=== PATIENT | male | born 1965 | race Hispanic/Latino ===

== ENCOUNTER 2022-02-21 17:32 | Emergency (ER) | payer OTHER ==
[~2022-02-21] VITALS: Ht 170.2 cm; Wt 79.4 kg
[2022-02-21] MEDS ORDERED: IBUPROFEN 600 MG TABLET PO ONE (18:00)
[2022-02-21] MEDS ORDERED: ONDANSETRON ODT 4MG TAB SL ONE (18:00)
[2022-02-21] MEDS ORDERED: ACETAMINOPHEN 500 MG TABLET PO ONE (18:00)
[2022-02-21] MEDS ORDERED: OSEL75 PO (18:43)
[2022-02-21] MEDS ORDERED: D-ME118S47 PO (18:43)
[2022-02-21] MEDS ORDERED: IBUP-2070 PO (18:43)
[2022-02-21] MEDS ORDERED: ONDA4TAB10 PO (18:43)
[2022-02-21] MEDS ORDERED: 0.9%NACL 1000ML 1,000 ML IV ONE (19:00)
[2022-02-21] MEDS ORDERED: OSELTAMIVIR PHOSPHATE 75 MG CAP PO SCH (19:00)
[2022-02-21 19:58] VITALS: BP 107/55
== END 2022-02-21 20:00 | disposition home or self-care (01) ==
LOC: EDH 17:32
DX: J10.1 Influenza due to other identified influenza virus with other respiratory manifestations (principal); Z20.822 Contact with and (suspected) exposure to COVID-19; I48.91 Unspecified atrial fibrillation; I10 Essential (primary) hypertension; Z88.0 Allergy status to penicillin
CPT/HCPCS: 99284; 87635; 87804 ×2; C9803

== ENCOUNTER 2022-09-12 16:40 | Emergency (ER) | payer OTHER ==
[~2022-09-12] VITALS: Ht 175.3 cm; Wt 81.6 kg
[~2022-09-12 16:40] MED LIST: D-ME118S47 PO; IBUP-2070 PO; ONDA4TAB10 PO; OSEL75 PO
[2022-09-12 17:12] LABS: BASOPHILS % (AUTO) 0.5 % (0.0-5.0); EOSINOPHILS % (AUTO) 0.6 % (0.0-8.0); HEMATOCRIT 42.7 % (42-54); LYMPHOCYTES % (AUTO) 16.3 % (21.0-51.0); MEAN CORPUSCULAR HEMOGLOBIN 28.6 pg (27.0-33.0); MEAN CORPUSCULAR HGB CONC 33.7 g/dL (32.0-36.0); MEAN CORPUSCULAR VOLUME 84.9 fL (79-99); NEUTROPHILS % (AUTO) 77.4 % (40.0-77.0); PLATELET COUNT (AUTO) 180 K/uL (130-400); RED BLOOD CELL COUNT(AUTO) 5.03 MIL/uL (4.50-6.20); RED CELL DISTRIBUTION WIDTH 12.3 % (11.0-15.5); WHITE BLOOD COUNT (AUTO) 6.6 K/uL (4.8-10.8)
[2022-09-12 17:22] LABS: POTASSIUM 3.4 mmol/L (3.5-5.1)
[2022-09-12 17:23] LABS: INR 0.95 (0.85-1.15); PROTHROMBIN TIME 10.4 SEC (9.6-11.6)
[2022-09-12 17:33] LABS: ALBUMIN 3.6 g/dL (3.5-5.0); TOTAL PROTEIN, SERUM 7.1 g/dL (6.0-8.3)
[2022-09-12 17:37] LABS: B-TYPE NATRIURETIC PEPTIDE 11 pg/mL (0-100)
[2022-09-12 18:10] VITALS: BP 102/63
[2022-09-12] MEDS ORDERED: LOSA25TA41 PO (18:34)
[2022-09-12] MEDS ORDERED: METO-408 PO (18:34)
[2022-09-12] MEDS ORDERED: KCL 20 MEQ ERTAB PO ONE (19:00)
== END 2022-09-12 18:55 | disposition home or self-care (01) ==
LOC: EDH 16:40
DX: E87.6 Hypokalemia (principal); R00.2 Palpitations; I48.91 Unspecified atrial fibrillation; I10 Essential (primary) hypertension; Z88.0 Allergy status to penicillin; Z79.899 Other long term (current) drug therapy
CPT/HCPCS: 36415; 71045; 80053; 83880; 84484; 85025; 85610; 93005

== ENCOUNTER 2024-03-03 13:38 | Emergency (ER) | payer OTHER ==
[~2024-03-03] VITALS: Ht 175.3 cm; Wt 80.7 kg
[~2024-03-03 13:38] MED LIST changes: +BROM118S48 PO; -D-ME118S47 PO; +LOSA25TA41 PO; +METO-408 PO; +ONDA-243 PO; -ONDA4TAB10 PO
[2024-03-03 14:42] LABS: RAPID GROUP A STREP negative (NEGATIVE)
[2024-03-03 14:54] LABS: INFLUENZA TYPE A Negative For Type A (NEGATIVE); INFLUENZA TYPE B Negative For Type B (NEGATIVE)
[2024-03-03 14:58] LABS: COVID19 (SARS ANTIGEN RAPID) PRESUMPTIVE NEGATIVE (NEGATIVE)
[2024-03-03 15:49] LABS: BASOPHILS # (AUTO) 0.02 K/uL (0.00-0.20); BASOPHILS % (AUTO) 0.2 % (0.0-5.0); EOSINOPHILS # (AUTO) 0.01 K/uL (0.00-0.70); EOSINOPHILS % (AUTO) 0.1 % (0.0-8.0); HEMATOCRIT 42.1 % (42-54); IMMATURE GRANULOCYTE ABSOLUTE 0.03 K/uL (0-1); LYMPHOCYTES # (AUTO) 0.3 K/uL (1.0-4.8); LYMPHOCYTES % (AUTO) 2.1 % (21.0-51.0); MEAN CORPUSCULAR HEMOGLOBIN 28.8 pg (27.0-33.0); MEAN CORPUSCULAR HGB CONC 34.4 g/dL (32.0-36.0); MEAN CORPUSCULAR VOLUME 83.7 fL (79-99); MONOCYTES # (AUTO) 0.4 K/uL (0.1-1.0); MONOCYTES % (AUTO) 3.4 % (3.0-13.0); NEUTROPHILS # (AUTO) 11.9 K/uL (1.8-7.7); PLATELET COUNT (AUTO) 154 K/uL (130-400); RED BLOOD CELL COUNT(AUTO) 5.03 MIL/uL (4.50-6.20); RED CELL DISTRIBUTION WIDTH 12.3 % (11.0-15.5); WHITE BLOOD COUNT (AUTO) 12.7 K/uL (4.8-10.8)
[2024-03-03 16:03] LABS: CREATININE 1.1 mg/dL (0.5-1.3); POTASSIUM 3.9 mmol/L (3.5-5.1)
[2024-03-03 16:07] LABS: ALBUMIN 3.8 g/dL (3.5-5.0); BILIRUBIN,TOTAL 0.8 mg/dL (0.2-1.0); TOTAL PROTEIN, SERUM 7.3 g/dL (6.0-8.3)
[2024-03-03] MEDS: 0.9%NACL 1000ML 1,000 ML IV ONE (17:14)
[2024-03-03 17:18] LABS: ADD UA MICROSCOPIC YES; APPEARANCE,URINE CLEAR (CLEAR); BILIRUBIN,URINE NEGATIVE (NEGATIVE); COLOR,URINE YELLOW (YELLOW); GLUCOSE, URINE (UA) NEGATIVE (NEGATIVE); KETONES,URINE NEGATIVE (NEGATIVE); LEUKOCYTE ESTERASE ,URINE NEGATIVE Leu/uL (NEGATIVE); NITRATE,URINE NEGATIVE (NEGATIVE); PROTEIN,URINE 10 mg/dL (NEGATIVE); UROBILINOGEN,URINE 0.2 mg/dL (0.2-1.0)
[2024-03-03 17:19] LABS: MUCUS,URINE RARE LPF (None Seen); RBC,URINE 0-1 /HPF (0-1); WBC,URINE 0-1 /HPF (0-1)
[2024-03-03] MEDS ORDERED: ONDA-243 PO (18:27)
[2024-03-03] MEDS ORDERED: DICY10 PO (18:27)
[2024-03-03] MEDS ORDERED: LOSA50TA64 PO (18:27)
[2024-03-03] MEDS ORDERED: METO-391 PO (18:27)
[2024-03-03 18:38] VITALS: BP 126/76; PULSE 90; RESP 18; O2SAT 99
== END 2024-03-03 18:43 | disposition home or self-care (01) ==
LOC: EDH 13:38
DX: A08.4 Viral intestinal infection, unspecified (principal); R19.7 Diarrhea, unspecified; I10 Essential (primary) hypertension; E86.0 Dehydration; I48.91 Unspecified atrial fibrillation; Z79.899 Other long term (current) drug therapy; Z88.0 Allergy status to penicillin; Z20.822 Contact with and (suspected) exposure to COVID-19
CPT/HCPCS: 99284; 96360; 87426; 84443; 84484; 80053; 85025; 87880; 87804 ×2; 81001; 36415; 93005 ×2; J7030

== ENCOUNTER 2024-06-18 22:50 | Emergency (ER) | payer BC ==
[~2024-06-18] VITALS: Ht 175.3 cm; Wt 79.4 kg
[~2024-06-18 22:50] MED LIST changes: +DICY10 PO; +LOSA50TA64 PO; +METO-391 PO
[2024-06-18 22:51] VITALS: BP 140/79; PULSE 72; RESP 18; TEMP 98
[2024-06-18 23:29] LABS: BASOPHILS # (AUTO) 0.03 K/uL (0.00-0.20); BASOPHILS % (AUTO) 0.5 % (0.0-5.0); EOSINOPHILS # (AUTO) 0.05 K/uL (0.00-0.70); EOSINOPHILS % (AUTO) 0.8 % (0.0-8.0); HEMATOCRIT 38.2 % (42-54); IMMATURE GRANULOCYTE ABSOLUTE 0.11 K/uL (0-1); LYMPHOCYTES # (AUTO) 1.2 K/uL (1.0-4.8); LYMPHOCYTES % (AUTO) 18.9 % (21.0-51.0); MEAN CORPUSCULAR HEMOGLOBIN 29.3 pg (27.0-33.0); MEAN CORPUSCULAR HGB CONC 33.8 g/dL (32.0-36.0); MEAN CORPUSCULAR VOLUME 86.6 fL (79-99); MONOCYTES # (AUTO) 0.5 K/uL (0.1-1.0); MONOCYTES % (AUTO) 7.8 % (3.0-13.0); NEUTROPHILS # (AUTO) 4.4 K/uL (1.8-7.7); NEUTROPHILS % (AUTO) 70.2 % (40.0-77.0); PLATELET COUNT (AUTO) 198 K/uL (130-400); RED BLOOD CELL COUNT(AUTO) 4.41 MIL/uL (4.50-6.20); RED CELL DISTRIBUTION WIDTH 12.8 % (11.0-15.5); WHITE BLOOD COUNT (AUTO) 6.3 K/uL (4.8-10.8)
--- NOTE | 2024-06-18 23:32 | ERN ---
ED Note History of Present Illness Stated Complaint: PALPITATIONS, RT ARM SWELLING Chief Complaint: Palpitations Time Seen by MD: 23:22 Dictation: HPI: 59-year-old male with past medical history of atrial fibrillation not on anticoagulants, hypertension, anxiety presented to ED with complaints of on and off palpitations for past 1-2 weeks and right hand pressure feeling for past few days.. As per the patient he was admitted to other hospital for atrial fibrillation 1 month back and he is currently having a heart monitor. His director of scientific research is Dr. Sanjiv magaña. As per the patient he wakes up every 2 hours and this lead and feels racing heart rate her daughter noticed that he goes into apnea during sleep.. Pending sleep studies. He denies chest pain, nausea, vomiting, any focal neurological deficit, fever, abdominal pain. Allergies: Coded Allergies: Penicillins (Unverified Allergy, Unknown, 02/21/22) Home Meds Active Scripts Dicyclomine HCl (Bentyl) 10 Mg Cap, 10 MG PO q8 hours PRN for abdominal pain/cramping, #15 CAP 0 Refills Prov:ANGELICAJOHANNA M [employer] 03/03/24 Ondansetron (Ondansetron Odt) 4 Mg Tab.rapdis, 4 MG PO Q6HPRN PRN for nausea, #15 TAB 0 Refills Prov:JOHANNA DOMINGUEZ [place] [employer] 03/03/24 Losartan Potassium (Losartan Potassium) 50 Mg Tablet, 50 MG PO DAILY, #30 TAB 0 Refills Prov:JOHANNA DOMINGUEZ [place] [employer] 03/03/24 Metoprolol Succinate (Metoprolol Succinate) 50 Mg Tab.er.24h, 50 MG PO DAILY, #30 TAB 0 Refills Prov:JOHANNA DOMINGUEZ [employer] 03/03/24 Losartan Potassium (Losartan Potassium) 25 Mg Tablet, 25 MG PO DAILY for 90 Days, #90 TAB Prov:DANIELLA ANAND MD 09/12/22 Metoprolol Succinate (Metoprolol Succinate) 25 Mg Tab.er.24h, 25 MG PO DAILY for 90 Days, #90 TAB Prov:DANIELLA ANAND MD 09/12/22 Ondansetron (Ondansetron Odt) 4 Mg Tab.rapdis, 4 MG PO TID for NAUSEA, #10 TAB Prov:DANIELLA ANAND MD 02/21/22 D-Methorphan Hb/P-Epd HCl/Bpm (Bromfed Dm Cough Syrup) 118 Ml Syrup, 10 ML PO QID for COUGH, #120 ML Prov:DANIELLA ANAND MD 02/21/22 Oseltamivir Phosphate (Tamiflu) 75 Mg Cap, 75 MG PO BID, #5 DAYS Prov:DANIELLA ANAND MD 02/21/22 Ibuprofen (Ibuprofen) 600 Mg Tablet, 600 MG PO Q6H PRN for PAIN, #30 TAB Prov:DANIELLA ANAND MD 02/21/22 Past Medical History Past Medical History: A-Fib, Hypertension Surgical History: Other Surgical History Other: RT HAND Social History: Negative, Lives with family RN Note Reviewed/Agreed w/PFSH: Yes Review of System Dictation REVIEW OF SYSTEMS Positive for right per limb pressure feeling, intermittent palpitations CONSTITUTIONAL: Denies fevers, chills, or night sweats. No unintentional weight loss reported. ENT: No hearing loss, otalgia, otorrhea, rhinitis, rhinorrhea, hoarseness, or sore throat. CARDIOVASCULAR: Denies any exertional angina, dyspnea on exertion, orthopnea, paroxysmal nocturnal dyspnea, palpitations claudication. PULMONARY: Denies any shortness of breath, cough, phlegm / sputum, hemoptysis, pleuritic chest pain. SLEEP: Denies morning headaches, daytime somnolence or napping. Denies difficulty falling asleep, staying asleep, waking from sleep. Denies knowledge of snoring. GASTROINTESTINAL: Denies any type of dysphagia to either liquids or solids. Denies nausea, vomiting, abdominal pain, diarrhea, constipation, blood in stools . NEUROLOGICAL: Denies headache, motor weakness, sensory deficit, vertigo / spinning sensation, gait abnormalities, or tremors. GENITOURINARY: Denies frequency, urgency, nocturia, hematuria or incontinence, low urinary stream, straining to void, urinary intermittency or hesitancy ENDOCRINOLOGY: Denies polyuria, polydipsia, polyphagia or heat / cold intolerance. HEMATOLOGY: Denies thrombophilia / previous clots, or coagulopathy / bleeding disorders. ONCOLOGIC: Denies personal history of malignancy. DERMATOLOGIC: Denies rashes or pruritus. PSYCHIATRIC: Denies any suicidal or homicidal ideation. Denies hallucinations. Initial Vital Sign VS Vital Signs Date Time Temp Pulse Resp B/P (MAP) Pulse Ox O2 Delivery O2 Flow Rate FiO2 06/18/24 22:51 98.1 72 18 140/79 98 Room Air Physical Exam Dictation PHYSICAL EXAM GENERAL APPEARANCE: Well nourished . Awake and alert. Oriented to time, place and person. No acute cardiopulmonary distress. HEENT: Head normocephalic , atraumatic. Sclera anicteric . Pupils are round and reactive. Extraocular movements intact . No conjunctival injection. No nasal congestion. No throat congestion .Oral mucosa moist. NECK: Supple. No JVD. No thyromegaly. No submental, submandibular, pre- /postauricular, occipital or supraclavicular lymphadenopathy. No carotid bruits. CHEST: Normal chest expansion. No Telemetry. LUNGS: Clear to auscultation bilaterally . No rales, rhonchi or any wheezing. Equal tactile fremitus. Resonant to percussion . CARDIOVASCULAR: Regular rate and rhythm. S1 and S2 normal. ? diastolic murmur loud on left sternal border ABDOMEN: Soft, nontender, and nondistended. There is no rebound tenderness, voluntary guarding, or rigidity. No hepatosplenomegaly. Bowel sounds normal in all four quadrants . NEUROLOGICAL: Cranial nerves II-XII grossly intact. Motor is 5/5 in bilateral upper and lower extremities . No sensory deficits. EXTREMITIES: No edema, No cyanosis , No clubbing. Good capillary refill. SKIN: No skin breakdown. No rashes or lesions . PSYCHIATRY: Normal affect .No auditory or visual hallucinations. Normal speech. No dysarthria. Results (Laboratory/Radiology) Laboratory/Radiology Laboratory Tests Test 06/18/24 23:21 White Blood Count 6.3 K/uL (4.8-10.8) Red Blood Count 4.41 MIL/uL (4.50-6.20) L Hemoglobin 12.9 g/dL (14.0-18.0) L Hematocrit 38.2 % (42-54) L Mean Corpuscular Volume 86.6 fL (79-99) Mean Corpuscular Hemoglobin 29.3 pg (27.0-33.0) Mean Corpuscular Hemoglobin Concent 33.8 g/dL (32.0-36.0) Red Cell Distribution Width 12.8 % (11.0-15.5) Platelet Count 198 K/uL (130-400) Mean Platelet Volume 9.8 fL (7.5-10.5) Immature Granulocyte % (Auto) 1.8 % (0-1) H Neutrophils (%) (Auto) 70.2 % (40.0-77.0) Lymphocytes (%) (Auto) 18.9 % (21.0-51.0) L Monocytes (%) (Auto) 7.8 % (3.0-13.0) Eosinophils (%) (Auto) 0.8 % (0.0-8.0) Basophils (%) (Auto) 0.5 % (0.0-5.0) Neutrophils # (Auto) 4.4 K/uL (1.8-7.7) Lymphocytes # (Auto) 1.2 K/uL (1.0-4.8) Monocytes # (Auto) 0.5 K/uL (0.1-1.0) Eosinophils # (Auto) 0.05 K/uL (0.00-0.70) Basophils # (Auto) 0.03 K/uL (0.00-0.20) Absolute Immature Granulocyte (auto 0.11 K/uL (0-1) Nucleated Red Blood Cells 0.0 % (0.0-0.19) Sodium Level 136 mmol/L (136-145) Potassium Level 3.5 mmol/L (3.5-5.1) Chloride Level 100 mmol/L (101-111) L Carbon Dioxide Level 32 mmol/L (21-32) Blood Urea Nitrogen 15 mg/dL (7-18) Creatinine 0.8 mg/dL (0.5-1.3) Glomerular Filtration Rate Calc 103 mL/min (>90) Random Glucose 137 mg/dL (70-105) H Total Calcium 8.6 mg/dL (8.5-10.1) Total Creatine Kinase 88 U/L (21-232) Troponin I High Sensitivity 8.0 ng/L (4-75) Labs Reviewed?: Yes ED Course ED Course Orders Procedure Category Date Status Time 12 Lead Ekg Tracing- EKG 06/18/24 Logged Technical 22:52 Cardiac Panel LAB 06/18/24 Complete 23:07 Cbc With Differential LAB 06/18/24 Complete 23:07 Basic Metabolic Panel LAB 06/18/24 Complete 23:07 Vital Signs Date Time Temp Pulse Resp B/P (MAP) Pulse Ox O2 Delivery O2 Flow Rate FiO2 06/18/24 22:51 98.1 72 18 140/79 98 Room Air Had a long discussion with patient and he already has a cardiac monitoring per his director of scientific research. He was started on flecainide, and also on diltiazem and amlodipine. He was scheduled for home sleep study to evaluate for possible obstructive sleep apnea as potential trigger for his palpitations. I could not appreciate any right upper extremity swelling that he was complaining about and there was no tenderness, erythema or palpable cords. Patient felt reassured and wished to follow up with his director of scientific research and pursue the sleep study arely It appeared that patient had a little bit of an anxiety episode. He was recentl y started on Lexapro Medical Decision Making MDM Differential diagnosis : Anxiety, arrhythmia Rationale: Tests considered and ordered secondary to shared decision making include: I will re-evaluate the patient after treatment and diagnostic exams have returned to determine whether they require further testing, can be safely discharged home, or need admission for further treatment and evaluation. Given the social determinants of health affecting care, including literacy, access to medical care, prescription drug management, and [id number] drugs, I will ensure that treatment plans are tailored accordingly. There are no social concerns with this patient. Risk of complication and/or morbidity or mortality of patient management: None Need for hospitalization: Patient does not meet criteria for hospitalization. Need for emergency major/minor surgery: No Prescription drug management Prescriptions will include symptomatic care Medications-Per medication reconciliation Previous outside records reviewed: Old ER visits. Patient's prior external medical records from other ER visits were reviewed by me as indicated. Prior testing and results from previous visits were reviewed. Prior tests were taken into account with medical decision making and resource utilization, independent historian/historians were used to obtain complete medical history. I independently interpreted the test that were performed, results were reviewed by me and considered findings on radiology. Medical management and examination interpretation discussions was done by me with other qualified healthcare professionals as indicated for the patient's care. Revaluation Disposition : Problem List Problem List: (1) Palpitations (2) History of atrial fibrillation (3) Hypertension DX & DISP Disposition: Discharge Departure Impression: Primary Impression: Palpitations Additional Impressions: History of atrial fibrillation, Hypertension Condition: Stable Additional Instructions: Patient and the caregiver have been informed of all the diagnostic tests and the imaging conducted during the today's visit to the emergency room and has verbalized understanding of the results I have personally reviewed and interpreted all diagnostic exams performed here in the ER today as well as the vital signs documented by the nursing staff. The patient is now being discharged to home and should follow up with the primary care physician or the specialist as directed by the ER staff. Follow-up with primary care provider in 1 to 2 days. Take medications as directed here in the emergency room. Okay to continue home medications unless otherwise discussed during your visit in the emergency room today. Return to your nearest emergency room if symptoms worsen or if there is no improvement. Call 911 if you need immediate assistance. Take Tylenol or Motrin [id number] as needed and if no contraindications are present. Increase oral hydration. A wound culture or urine culture was ordered here in the emergency room department please follow-up with primary care provider and advise them to get repeat ports from our facility. If you had any Romel wrap/splints that were applied here, please do not remove them until you see your primary care or specialty. Patient has a follow-up appointment this coming week with his director of scientific research for evaluation of the monitoring tech and ongoing palpitations and response to flecainide He is in normal sinus rhythm with rate controlled at this time and is wanting to follow up with his director of scientific research who does not come to this hospital Referrals: SELF,REFERRAL (PCP) ATTESTATION BY PHYSICIAN I have seen and examined the patient. I reviewed the documentation, medical decision making, and treatment plan as noted by the resident provider above. I agree with the findings and plan of care. ALAN SUTTON MD, ANCHU A MD Jun 18, 2024 23:32 ALAN SUTTON MD Jun 19, 2024 01:26
[2024-06-18 23:35] LABS: CREATININE 0.8 mg/dL (0.5-1.3); POTASSIUM 3.5 mmol/L (3.5-5.1)
--- NOTE | 2024-06-19 15:09 | EKG ---
[facility] Test Date: 2024-06-18 Test Time: 22:52:29 Pat Name: BRAYDEN SÁNCHEZ Department: ED Room: Gender: M Manager Specialty: [id number] : 1965 Requested By: ALAN SUTTON Order Number: [id number] Reading MD: Yury Oleary Measurements Intervals [place] Rate: 76 P: 78 [place]: 177 QRS: 65 QRSD: 95 T: 86 QT: 402 QTc: 453 Interpretive Statements Sinus rhythm Compared to ECG 03/03/2024 16:40:42 No significant changes Electronically Signed On 06-19-2024 17:36:43 [employer] by Yury Oleary Please click the below link to view image of tracing.
== END 2024-06-19 01:45 | disposition home or self-care (01) ==
LOC: EDH 22:50
DX: R00.2 Palpitations (principal); I48.91 Unspecified atrial fibrillation; I10 Essential (primary) hypertension; Z79.899 Other long term (current) drug therapy; Z88.0 Allergy status to penicillin; Z98.890 Other specified postprocedural states
CPT/HCPCS: 36415; 80048; 82550; 84484; 85025; 93005

== ENCOUNTER 2025-06-02 08:17 | Emergency (ER) | payer BC ==
[~2025-06-02] VITALS: Ht 175.3 cm; Wt 79.4 kg
[~2025-06-02 08:17] MED LIST changes: +IBUP-1492 PO; -IBUP-2070 PO
--- NOTE | 2025-06-02 08:34 | ERN ---
General Chief Complaint: Palpitations Stated Complaint: PALPITATIONS Time Seen by MD: 08:20 Source: patient History of Present Illness Initial Comments Patient is a 60-year-old male coming in complaining of palpitations. Per patient he does has a history of AFib. Per patient he was recently with a reduced on his metoprolol from 50 to 25 but he states he also has a history of sleep apnea. Patient is also stating that he has not used his CPAP for some time and believes he might be contributing to his palpitation. Allergies: Coded Allergies: Penicillins (Unverified Allergy, Unknown, 02/21/22) Home Meds Active Scripts Dicyclomine HCl (Bentyl) 10 Mg Cap, 10 MG PO q8 hours PRN for abdominal pain/cramping, #15 CAP 0 Refills Prov:JOHANNA DOMINGUEZ [facility] 03/03/24 Ondansetron (Ondansetron Odt) 4 Mg Tab.rapdis, 4 MG PO Q6HPRN PRN for nausea, #15 TAB 0 Refills Prov:JOHANNA DOMINGUEZ [facility] 03/03/24 Losartan Potassium (Losartan Potassium) 50 Mg Tablet, 50 MG PO DAILY, #30 TAB 0 Refills Prov:JOHANNA DOMINGUEZ [facility] 03/03/24 Metoprolol Succinate (Metoprolol Succinate) 50 Mg Tab.er.24h, 50 MG PO DAILY, #30 TAB 0 Refills Prov:JOHANNA DOMINGUEZ [facility] 03/03/24 Losartan Potassium (Losartan Potassium) 25 Mg Tablet, 25 MG PO DAILY for 90 Days, #90 TAB Prov:DANIELLA ANAND MD 09/12/22 Metoprolol Succinate (Metoprolol Succinate) 25 Mg Tab.er.24h, 25 MG PO DAILY for 90 Days, #90 TAB Prov:DANIELLA ANAND MD 09/12/22 Ondansetron (Ondansetron Odt) 4 Mg Tab.rapdis, 4 MG PO TID for NAUSEA, #10 TAB Prov:DANIELLA ANAND MD 02/21/22 D-Methorphan Hb/P-Epd HCl/Bpm (Bromfed Dm Cough Syrup) 118 Ml Syrup, 10 ML PO QID for COUGH, #120 ML Prov:DANIELLA ANAND MD 02/21/22 Oseltamivir Phosphate (Tamiflu) 75 Mg Cap, 75 MG PO BID, #5 DAYS Prov:DANIELLA ANAND MD 02/21/22 Ibuprofen (Ibuprofen) 600 Mg Tablet, 600 MG PO Q6H PRN for PAIN, #30 TAB Prov:DANIELLA ANAND MD 02/21/22 Past Medical History Past Medical History: A-Fib, Hypertension, Other Medical History Other: APNEA Past Surgical History: None Surgical History Other: RT HAND Social History Social History: Negative, Lives with family ROS Dictation CONSTITUTIONAL: No chills, no fever, no weakness, no diaphoresis, no malaise. HEAD/FACE: No signs of trauma. EENT: No eye pain, no blurred vision, no tearing, no double vision, no ear pain, no ear discharge, no nose pain, no nasal congestion, no throat pain, no throat swelling, no mouth pain. RESPIRATORY: No cough, no orthopnea, no SOB, no stridor, no wheezing. CARDIOVASCULAR: No chest pain, no edema, no palpitations, no syncope. GASTROINTESTINAL/ABDOMINAL: No abdominal pain, no constipation, no diarrhea, no nausea, no vomiting. GENITOURINARY: No abnormal discharge, no dysuria, no frequent urination, no hematuria. No complaints of pain in the genitals. MUSCULOSKELETAL: No back pain, no gout, no joint pain, no joint swelling, no muscle pain, no muscle stiffness, no neck pain. INTEGUMENTARY: No change in color, no change in hair/nails, no dryness, no lesion, no lumps, no rash. NEUROLOGICAL/PSYCH: No anxiety, not depressed, no emotional problem, no headache, no numbness, no pre-existing deficit, no history of seizures, no tremors, no weakness. HEMATOLOGIC/LYMPHATIC: Not anemic, no history of blood clots, no apparent bleeding, no bruising, glands not swollen. All Systems Negative, Except as Noted. Physical Exam Physical Exam Dictation VITAL SIGNS: Reviewed. GENERAL APPEARANCE: Alert, oriented x3, no acute distress, obese. HEAD AND FACE: Non-traumatic. EYES: PERRL, pink conjunctivas, eyelid no trauma, anterior chamber clear. EARS: Pinnas intact and no signs of trauma or erythema. Ear canals clear and no discharge. TMs no erythema. NOSE: No discharge, no bleeding. OROPHARYNX: Mouth normal, teeth no caries, tongue pink. Pharynx clear, no erythema. Tonsils no exudates, no abscesses noted. Mucous membrane moist. NECK: Supple, non-tender, no thyromegaly, no masses, no JVD, no bruits. BREAST: Deferred. CHEST: No tenderness, no crepitus, no paradoxical movement, no retractions. LUNGS: Clear, well-ventilated, symmetric, no rales, no wheezing, no rhonchi, no stridor, good breath sounds bilaterally. HEART: Regular rate, regular rhythm, no murmur, no gallops. VASCULAR: No peripheral edema. ABDOMEN: Soft, positive bowel sounds, nondistended, no guarding, nontender, no rebound, no masses no hepatomegaly, no splenomegaly, no Puentes's sign, no hernias. RECTAL: Deferred. GENITAL: Deferred. NEUROLOGICAL: Normal speech, gross motor function intact, gross sensory function intact. MUSCULOSKELETAL: Neck nontender, full range of motion, back nontender, full range of motion. EXTREMITIES: Nontender, full range of motion. SKIN: Color pink, dry, no turgor, no rash, no lacerations, no abrasions, no contusions. LYMPHATICS: Deferred. Results Laboratory and Microbiology Lab and Micro Result Laboratory Tests Test 06/02/25 08:30 06/02/25 10:17 White Blood Count 6.1 K/uL (4.8-10.8) Red Blood Count 4.91 MIL/uL (4.50-6.20) Hemoglobin 14.3 g/dL (14.0-18.0) Hematocrit 42.5 % (42-54) Mean Corpuscular Volume 86.6 fL (79-99) Mean Corpuscular Hemoglobin 29.1 pg (27.0-33.0) Mean Corpuscular Hemoglobin Concent 33.6 g/dL (32.0-36.0) Red Cell Distribution Width 12.7 % (11.0-15.5) Platelet Count 194 K/uL (130-400) Mean Platelet Volume 10.0 fL (7.5-10.5) Immature Granulocyte % (Auto) 0.3 % (0-1) Neutrophils (%) (Auto) 70.4 % (40.0-77.0) Lymphocytes (%) (Auto) 20.5 % (21.0-51.0) L Monocytes (%) (Auto) 7.4 % (3.0-13.0) Eosinophils (%) (Auto) 1.1 % (0.0-8.0) Basophils (%) (Auto) 0.3 % (0.0-5.0) Neutrophils # (Auto) 4.3 K/uL (1.8-7.7) Lymphocytes # (Auto) 1.3 K/uL (1.0-4.8) Monocytes # (Auto) 0.5 K/uL (0.1-1.0) Eosinophils # (Auto) 0.07 K/uL (0.00-0.70) Basophils # (Auto) 0.02 K/uL (0.00-0.20) Absolute Immature Granulocyte (auto 0.02 K/uL (0-1) Nucleated Red Blood Cells 0.0 % (0.0-0.19) Sodium Level 141 mmol/L (136-145) Potassium Level 3.9 mmol/L (3.5-5.1) Chloride Level 104 mmol/L (101-111) Carbon Dioxide Level 28 mmol/L (21-32) Blood Urea Nitrogen 14 mg/dL (7-18) Creatinine 0.8 mg/dL (0.5-1.3) Glomerular Filtration Rate Calc 102 mL/min (>90) Random Glucose 116 mg/dL (70-105) H Total Calcium 8.3 mg/dL (8.5-10.1) L Magnesium Level 2.00 mg/dL (1.80-2.40) Total Creatine Kinase 110 U/L (21-232) # Troponin I High Sensitivity 6 ng/L (4-75) Urine Color COLORLESS (YELLOW) Urine Appearance CLEAR (CLEAR) Urine pH 6.0 (5.0-8.0) Urine Specific [place] 1.007 (1.001-1.031) Urine Protein NEGATIVE mg/dL (NEGATIVE) Urine Glucose (UA) NEGATIVE mg/dL (NEGATIVE) Urine Ketones NEGATIVE mg/dL (NEGATIVE) Urine Occult Blood NEGATIVE (NEGATIVE) Urine Nitrate NEGATIVE (NEGATIVE) Urine Bilirubin NEGATIVE mg/dL (NEGATIVE) Urine Urobilinogen 0.2 mg/dL (0.2-1.0) Urine Leukocyte Esterase NEGATIVE [place]/uL Urine Opiates Screen NEGATIVE (NEGATIVE) Urine Barbiturates Screen NEGATIVE (NEGATIVE) Urine Phencyclidine Screen NEGATIVE (NEGATIVE) Urine Amphetamines Screen NEGATIVE (NEGATIVE) Urine Benzodiazepines Screen NEGATIVE (NEGATIVE) Urine Cocaine Screen NEGATIVE (NEGATIVE) Urine Marijuana (THC) Screen NEGATIVE (NEGATIVE) Labs Reviewed?: Yes EKG/XRAY/US/CT/MRI EKG Comment 06/02/2025 time 8:22 a.m. Ventricular rate [address] wave elevation or depression MDM MDM: Differential diagnosis: History of AFib, history of sleep apnea, Rationale: Tests considered and ordered secondary to shared decision making include: Previous outside records reviewed: Old ER visits. Risk of complication and/or morbidity or mortality of patient management: None Medications-Per medication reconciliation Need for hospitalization: Patient does not meet criteria for hospitalization. Need for emergency major/minor surgery: No Patient is a 60-year-old gentleman coming in complaining of palpitations. Patient does has a history of atrial fibrillation and states that he has noticed that when he does not use a CPAP machine that he is heart rate tends to be elevated. Cardiac workup negative for any acute findings. I did advise him to continue using his CPAP is recommended. Patient refused a chest x-ray. Patient will be discharged in stable condition with a diagnosis of atrial fibrillation. I did advised him appropriate follow up with the PCP for long-term management. Patient has been asymptomatic throughout ER visit. ED Course Orders Procedure Category Date Status Time Cbc With Differential LAB 06/02/25 Complete 08:23 Chest 1vw RAD 06/02/25 Logged 08:23 12 Lead Ekg Tracing- EKG 06/02/25 Complete Technical 08:23 Magnesium LAB 06/02/25 Complete 08:23 Creatine Kinase, Total LAB 06/02/25 Complete 08:23 Troponin I High LAB 06/02/25 Complete Sensitivity 08:23 Urinalysis Profile LAB 06/02/25 Complete 08:23 Basic Metabolic Panel LAB 06/02/25 Complete 08:23 Drug Screen Urine LAB 06/02/25 Complete 10:17 Vital Signs Date Time Temp Pulse Resp B/P (MAP) Pulse Ox O2 Delivery O2 Flow Rate FiO2 06/02/25 11:07 73 20 152/77 98 Room Air* 0 21 06/02/25 08:49 98.2 73 20 152/77 96 Room Air* 0 21 06/02/25 08:18 97.0 90 18 139/87 99 Room Air 0 DX & DISP Disposition: Discharge Departure Impression: Primary Impression: History of atrial fibrillation Additional Impression: History of sleep apnea Condition: Stable Additional Instructions: You have been reviewed in the emergency department at [facility] after presenting with chest pain. After considering your history, your risk factors, your EKG and your blood test troponins, have been found to be at very low risk less than (1 in 100) of having a major adverse cardiac event (like heart attack) in the near future. In the " low risk" group, the risks of doing further tests and treatment as the inpatient outweighs the benefits. In many patients in the low risk group for the test of any sort or unnecessary, however he should discuss this further with his general practitioner who will understand the medical and personal backgrounds better. Because we have never declared you" no risk" we would suggest. 1 returning for medical review if you have further episodes of chest pain/arm pain or other concerning symptoms like dizziness, collapse, palpitations or shortness of breath. 2. Following up with your local doctor who will consider the need for further testing and will also ensure that any modifiable risk factors you may have for heart disease are optimally managed. Patient will be discharged in stable condition at the moment discharge patient states , no chest pain Referrals: BEL YOU MD (PCP) Time of Disposition: 11:26 SABA PERALTA MD Jun 02, 2025 08:34
[2025-06-02 08:38] LABS: IMMATURE GRANULOCYTE ABSOLUTE 0.02 K/uL (0-1); NUCLEATED RED BLOOD CELLS 0.0 % (0.0-0.19); PLATELET COUNT (AUTO) 194 K/uL (130-400); RED BLOOD CELL COUNT(AUTO) 4.91 MIL/uL (4.50-6.20); RED CELL DISTRIBUTION WIDTH 12.7 % (11.0-15.5); WHITE BLOOD COUNT (AUTO) 6.1 K/uL (4.8-10.8)
[2025-06-02 08:46] LABS: CREATININE 0.8 mg/dL (0.5-1.3); GLOMERULAR FILTR. RATE CALC 102.0 mL/min (>90); GLUCOSE,RANDOM 116.0 mg/dL (70-105); SODIUM SERUM 141.0 mmol/L (136-145); UREA NITROGEN, BLOOD 14.0 mg/dL (7-18)
[2025-06-02 08:49] VITALS: TEMP 98.2
[2025-06-02 08:51] LABS: CREATINE KINASE, TOTAL 110.0 U/L (21-232)
--- NOTE | 2025-06-02 09:23 | NUR ---
PT REFUSED CHEST XRAY. AWARE
[2025-06-02 10:37] LABS: AMPHET/METH SCREEN,URINE NEGATIVE (NEGATIVE); BARBITURATE SCREEN, URINE NEGATIVE (NEGATIVE); CANNABINOID SCREEN,URINE NEGATIVE (NEGATIVE); COCAINE SCREEN,URINE NEGATIVE (NEGATIVE)
--- NOTE | 2025-06-02 10:37 | EKG ---
[facility] Test Date: 2025-06-02 Test Time: 08:22:43 Pat Name: BRAYDEN SÁNCHEZ Department: [facility] Room: Gender: It Security Analyst: [facility] : 1965 Requested By: SABA PERALTA Order Number: [id number] Reading MD: Robert Cee Measurements Intervals [place] Rate: 91 P: 0 [place]: 0 QRS: 50 QRSD: 81 T: 55 QT: 356 QTc: 439 Interpretive Statements Atrial fibrillation Compared to ECG 06/18/2024 22:52:29 Sinus rhythm no longer present Electronically Signed On 06-02-2025 16:13:08 CDT by Robert Cee Please click the below link to view image of tracing.
[2025-06-02 10:45] LABS: APPEARANCE,URINE CLEAR (CLEAR); GLUCOSE, URINE (UA) NEGATIVE (NEGATIVE); LEUKOCYTE ESTERASE ,URINE NEGATIVE Leu/uL (NEGATIVE); NITRATE,URINE NEGATIVE (NEGATIVE); OCCULT BLOOD,URINE NEGATIVE (NEGATIVE)
[2025-06-02 10:47] LABS: ADD UA MICROSCOPIC NO
[2025-06-02 11:07] VITALS: BP 152/77; PULSE 73; RESP 20; O2SAT 98
== END 2025-06-02 15:57 | disposition home or self-care (01) ==
LOC: EDH 08:17
DX: I48.91 Unspecified atrial fibrillation (principal); G47.30 Sleep apnea, unspecified; I10 Essential (primary) hypertension; Z79.899 Other long term (current) drug therapy; Z88.0 Allergy status to penicillin
CPT/HCPCS: 36415; 80048; 80305; 81003; 82550; 83735; 84484; 85025; 93005; 99284